=== PATIENT | female | born 1990 | race Caucasian/White ===

== ENCOUNTER 2023-11-02 08:09 | Observation (INO) | payer OTHER, SELFPAY ==
[2023-11-02] VITALS (93 sets, daily range): BP systolic 51–141; BP diastolic 29–120; PULSE 70–158; O2SAT 89–100; BMI 26.4
--- NOTE | ~2023-11-02 | US_ITS ---
EXAMINATION: US OB follow up w BPP DATE: 11/02/2023 11:54 INDICATION: Amniotic fluid index evaluation. Biophysical profile. TECHNIQUE: Real-time ultrasound of the pelvis was performed. The interpreting radiologist was not pre sent for the study. COMPARISON: None. FINDINGS: There is a single living fetus in vertex presentation. The placenta is anterior. cardiac activ ity and movement are noted. heart rate is 135 beats per minute (bpm). The amniotic fluid index is 19 cm, which is normal. The following biometric data were obtained: BPD: 85 cm corresponds to gestational age 34 weeks 0 day(s). Head circumference: 293 cm corresponds to gestational age 32 weeks 2 day(s). Abdominal circumference: 273 cm corresponds to gestational age 31 weeks 3 day(s). Femur length: 61 cm corresponds to gestational age 31 weeks 6 day(s). Estimated weight: 1846 g plus or minus 276 g, 42%. Biophysical profile performed by the technologist: breathing (30 sec sustained breathing in 30 minutes): 2 out of 2 movement (3 gross body movements in 30 minutes: 2 out of 2 tone (one episode of [id number] limb movement): 2 out of 2 Amniotic fluid pocket (2 cm): 2 out of 2 Total score: 8 out of 8 IMPRESSION: 1. Single living fetus in vertex presentation with heart rate of 135 bpm. 2. Normal placenta. 3. Biophysical profile 8 out of 8. 4. Gestational age by ultrasound of 32 weeks 3 day(s) with ultrasound estimated date of delivery (FELY ) of 12/25/2023. 5. Estimated weight is 42%th percentile by Hadlock criteria. Reviewed, dictated and finalized at location A. IMPRESSION: 1. Single living fetus in vertex presentation with heart rate of 135 bpm. 2. Normal placenta. 3. Biophysical profile 8 out of 8. 4. Gestational age by ultrasound of 32 weeks 3 day(s) with ultrasound estimated date of delivery (FELY) of 12/25/2023. 5. Estimated weight is 42%th percentile by Hadlock criteria.
--- NOTE | 2023-11-02 08:33 | PC.NURSE ---
pt presents reporting bleeding. Pt states she got up to the bathroom this AM and when she wiped she had some bloody discharge. Pt states that it was darker in color. Pt states that she waited for a bit and then urinated again and wiped with less blood but felt she needed to get checked out. pt denies needing a pad.
--- NOTE | 2023-11-02 08:38 | PM.IMHP ---
H&P: HPI History of Present Illness Date/Time: 11/02/23 08:38 Chief Complaint: vaginal bleeding in Narrative: 33-year-old multiparous who presented with vaginal spotting at 31 weeks gestation. Dark blood mostly at times some red blood , very light. no contractions, no nausea, no loss of fluid,. no nausea, vomiting, fever, chills. No chest pain or shortness of breath. No headache, blurry vision, epigastric pain, no worsening of swelling. Good movement. Had ultrasound yesterday is her OBs office. To obtain ultrasound placenta. To monitor, to orally hydrate. Will likely discharge. Review of Systems Review of Systems: All systems reviewed & are unremarkable except as noted in HPI and below Constitutional: Constitutional: Denies chills, Denies fatigue, Denies fever(s) and Denies weakness Eyes: Eyes: Denies blurry vision, Denies change in vision, Denies loss of peripheral vision, Denies loss of vision, Denies other visual disturbances and Denies eye pain ENT: Denies vertigo, Denies dizziness, Denies hearing loss, Denies mouth pain, Denies nasal obstruction, Denies neck mass and Denies neck pain Cardiovascular: Cardiovascular: Denies chest pain, Denies diaphoresis, Denies syncope, Denies leg edema and Denies dyspnea Respiratory: Respiratory: Denies chest congestion, Denies cough, Denies hemoptysis, Denies dyspnea and Denies wheezing Gastrointestinal: Gastrointestinal: Denies abdominal pain, Denies constipation, Denies diarrhea, Denies nausea and Denies vomiting Genitourinary: Genitourinary: Denies hematuria, Denies change in libido, Denies nocturia, Denies genital lesions, Denies flank pain and Denies urinary urgency Musculoskeletal: Musculoskeletal: Denies abnormal gait, Denies back pain, Denies myalgias, Denies arthralgias, Denies joint swelling, Denies muscle weakness and Denies neck pain Integumentary/Breasts: Skin/Breast: Denies swelling, Denies breast pain, Denies breast mass, Denies dry skin, Denies nipple discharge, Denies unusual bruising and Denies jaundice Neurologic: Denies Neuro-related abnormal movements, Denies Abnormal speech present, Denies abnormal gait, Denies behavioral changes, Denies confusion, Denies vertigo, Denies dizziness, Denies syncope, Denies loss of vision, Denies memory loss, Denies convulsions and Denies weakness Psychiatric: Psychiatric: Denies abnormal sleep pattern, Denies behavioral changes, Denies change in libido, Denies confusion, Denies depression, Denies anhedonia and Denies memory loss Endocrine: Endocrine: Reports no additional endocrine complaints, Denies change in libido and Denies fatigue Hematologic/Lymphatic: Hematologic/Lymphatic: Reports no additional hematologic/lymphatic complaints Allergic/Immunologic: Allergic/Immunologic: Reports no additional allergic/immunologic complaints and Denies wheezing Meds Vital Signs Vital Signs - 24 hr 11/02/23 08:29 11/02/23 08:34 Pulse Oximetry 100 100 Exam Const: General: cooperative, healthy appearing, comfortable and no acute distress Orientation/consciousness: oriented to person, oriented to place and oriented to time HENMT: Head: normal to inspection Ears: external ears normal Face/Nose/Sinus: Normal external nose present and normal facial exam Face and sinus: normal facial exam Eyes: General: appearance normal, both eyes and all related structures Neck: Neck: normal visual inspection, trachea midline and supple Resp: Auscultation: clear to auscultation bilaterally, no crackles, no rales, no rhonchi and no wheezes Cardio: Rate: regular rate Rhythm: regular rhythm Heart sounds: no click, no murmurs and no rubs GI: GI Palp: No abdominal tenderness, No Soft to palpation, No Tenderness to palpation present (GI) and No Palpable mass present Auscultation: normal bowel sounds Skin: General skin exam: normal color and no rashes or lesions noted Neuro: General: oriented to person, oriented to place and ayde
--- NOTE | 2023-11-02 08:42 | PC.NURSE ---
0844-pt called out spa concierge light stating she was lightheaded. RN immediately to the bedside. pt stated to RN she did not feel good and then stopped talking. pt unable to follow commands. RN called for help. RN and MD at bedside. Pt sternal rubbed by RN with no responses by pt. RN turned pt to left side (0847) and pt began responding to RN. O2 also placed on pt. 0850- RN and MD continue to be at bedside pt stating she feels better than she did and answering questions appropriately. Pt does not remember passing out but remembers why she came to the hospital. ordered labs, Fluid bolus and bedside ultrasound.
--- NOTE | 2023-11-02 09:10 | PC.NURSE ---
multiple attempts at IVs on this pt. IV therapy called
[2023-11-02 09:13] LABS: Glucose Point of Care 94 mg/dl (65-105)
[2023-11-02] MEDS: LACTATED RINGERS 1,000 ML 999 ML IV CONT (09:43)
[2023-11-02 09:45] LABS: Basophils Percent Auto 0.5 % (0.2-1.2); Eosinophils Absolute Auto 0.1 K/mm3 (0-0.3); Eosinophils Percent Auto 1.7 % (0-4.4); Hematocrit 33.5 % (37.0-47.0); Hemoglobin 11.1 g/dL (12.0-15.0); Immature Granulocyte Absolute 0.04 K/mm3 (0.00-0.031); Immature Granulocyte Percent A 0.5 % (0-0.5); Lymphocytes Absolute Auto 1.19 K/mm3 (0.9-3.2); Lymphocytes Percent Auto 15.3 % (18.3-44.2); Mean Corpuscular HGB Conc 33.1 g/dl (32-36); Mean Corpuscular Hemoglobin 30.4 pg (26-34); Mean Corpuscular Volume 91.8 fl (80-100); Mean Platelet Volume 10.1 fl (7.4-10.4); Monocytes Absolute Auto 0.6 K/mm3 (0.1-0.6); Monocytes Percent Auto 7.8 % (2.6-8.5); Neutrophils Absolute Auto 5.8 K/mm3 (1.3-6.7); Neutrophils Percent Auto 74.2 % (45.5-73.1); Platelet Count Result 257 k/mm3 (150-375); Red Blood Count 3.65 M/mm3 (4.2-5.4); White Blood Count 7.8 K/mm3 (4.5-10.0)
[2023-11-02 09:56] LABS: Alanine Aminotransferase 10 U/L (6-35); Albumin Level 3.7 g/dL (3.5-5.1); Alkaline Phosphatase 81 U/L (38-126); Anion Gap 2 mmol/L (8-16); Aspartate Amino Transferase 20 U/L (14-36); Bilirubin,Total 0.3 mg/dL (0.2-1.3); Blood Urea Nitrogen 5 mg/dL (7-17); Calcium 8.4 mg/dL (8.4-10.2); Carbon Dioxide 23 mmol/L (22-30); Chloride 108 mmol/L (98-107); Estimated CRCL calculation 120 ml/min; Estimated Glomerular Filt Rate > 60; Glucose 89 mg/dL (65-110); Potassium 3.3 mmol/L (3.4-5.0); Sodium 133 mmol/L (137-145); Uric Acid 3.4 mg/dL (2.5-7.5)
--- NOTE | 2023-11-02 10:28 | PC.NURSE ---
Dr. Costa updated on the pt with labs and vital signs. No blood noted when pt got up to the bathroom. Order received for 40mEq of potassium and EKG.
--- NOTE | 2023-11-02 10:31 | ECG_ITS ---
Measurements Intervals [place] Rate: 103 P: 15 WV: 149 QRS: 61 QRSD: 79 T: 11 QT: 338 QTc: 444 Interpretive Statements SINUS TACHYCARDIA BORDERLINE ST-T WAVE ABNORMALITY- ANT/INF LEADS BASELINE ARTIFACT- V2-V3 BORDERLINE ECG NO PREVIOUS ECG AVAILABLE FOR COMPARISON Electronically Signed On 11-02-2023 13:36:18 CDT by Eddie Leal D.O.
[2023-11-02] MEDS: POTASSIUM CHLORIDE 20 MEQ ER TABLET 40 MEQ PO (11:16)
--- NOTE | 2023-11-02 11:44 | PC.NURSE ---
pt up to the bathroom no blood noted. ultrasound back to the bedside for additional images of the placenta
--- NOTE | 2023-11-02 12:13 | PC.NURSE ---
Dr. Costa updated with ultrasound. Pt uterus irritable. okay with pt eating and continuing to watch pt at this time.
--- NOTE | 2023-11-02 14:29 | PC.NURSE ---
Dr. Costa at the bedside discussing POC with the pt. Pt would like to discharge and have her drive her to [facility] for 2nd evaluation.
--- NOTE | 2023-11-02 14:37 | PM.OBPNVD ---
OB - PN: Subj Subjective Date/time seen: 11/02/23 14:37 Interval history: episode of loss of consciousness that lasted less than 2 minutes. Patient was unresponsive for that time. She was hypotensive with a normal heart rate. Subsequently there was a heart rate deceleration. The mother quickly returned to full consciousness aware of her surroundings and location , able to move arms and legs freely in hands. heart tones quickly returned also, down 3 minutes. The patient was observed for several hours after this event. She was normotensive. testing was normal with reactive NST. Ultrasound of the and placenta were normal. BPP of 8/8. After several hours of observation and we consider discharge. The patient wanted to go to [facility]. We offered her both discharge and transfer to [facility]. She wanted to to go to [facility]. We agreed. Her was here and is going to drive her. OB - PN: Obj Data Labs 11/02/23 09:37 11/02/23 09:37 Labs: Laboratory Results - last 24 hr 11/02/23 11/02/23 11/02/23 08:46 09:37 09:37 WBC 7.8 RBC 3.65 L Hgb 11.1 L Hct 33.5 L MCV 91.8 MCH 30.4 MCHC 33.1 RDW 12.0 Plt Count 257 MPV 10.1 Immature Gran % (Auto) 0.5 Neut % (Auto) 74.2 H Lymph % (Auto) 15.3 L [place] % (Auto) 7.8 Eos % (Auto) 1.7 Baso % (Auto) 0.5 Lymph # (Auto) 1.19 [place] # (Auto) 0.6 Eos # (Auto) 0.1 Baso # (Auto) 0.0 Abs Immat Gran (auto) 0.04 H Absolute Neuts (auto) 5.8 Absolute Nucleated RBC 0.000 Nucleated RBC % 0.0 Sodium 133 L Potassium 3.3 L Chloride 108 H Carbon Dioxide 23 Anion Gap 2 L BUN 5 L Creatinine 0.50 L Estim Creat Clear Calc 120 Estimated GFR > 60 Glucose 89 POC Capillary Glucose 94 Uric Acid 3.4 Cancelled Calcium 8.4 Total Bilirubin 0.3 AST 20 ALT 10 Alkaline Phosphatase 81 Total Protein 7.0 Albumin 3.7 Blood Type O Positive Antibody Screen Negative Imaging Radiologist's impression: Impressions Obstetrical Follow-Up 11/02/23 12:01 IMPRESSION: 1. Single living fetus in vertex presentation with heart rate of 135 bpm. 2. Normal placenta. 3. Biophysical profile 8 out of 8. 4. Gestational age by ultrasound of 32 weeks 3 day(s) with ultrasound estimated date of delivery (FELY) of 12/25/2023. 5. Estimated weight is 42%th percentile by Hadlock criteria. OB - PN A/P Assessment and Plan (1) Loss of consciousness: Code(s): R40.20 - Unspecified coma Status: Acute (2) Other antepartum hemorrhage, third trimester: Code(s): O46.8X3 - Other antepartum hemorrhage, third trimester Status: Acute Plan episode of loss of consciousness that lasted less than 2 minutes. Patient was unresponsive for that time. She was hypotensive with a normal heart rate. Subsequently there was a heart rate deceleration. The mother quickly returned to full consciousness aware of her surroundings and location , able to move arms and legs freely in hands. heart tones quickly returned also, down 3 minutes. The patient was observed for several hours after this event. She was normotensive. testing was normal with reactive NST. Ultrasound of the infant and placenta were normal. BPP of 8/8. After several hours of observation and we consider discharge. The patient wanted to go to [facility]. We offered her both discharge and transfer to [facility]. She wanted to to go to [facility]. We agreed. Her was here and is going to drive her. Time Spent With Patient Time: Total time spent is greater than 50% in coordination of care (as documented) at patient's floor/unit and/or counseling patient:
--- NOTE | 2023-12-01 20:32 | PM.OBTRLD ---
OB - Triage/Final Diagnosis Visit Information Comments/Additional reasons for admission: I have assessed the risk for this patient, Aruna Quintanilla, and determined that she would benefit from observation care. Evaluation Laboratory results: Laboratory Tests 11/02/23 11/02/23 11/02/23 08:46 09:37 09:37 WBC 7.8 RBC 3.65 L Hgb 11.1 L Hct 33.5 L MCV 91.8 MCH 30.4 MCHC 33.1 RDW 12.0 Plt Count 257 MPV 10.1 Immature Gran % (Auto) 0.5 Neut % (Auto) 74.2 H Lymph % (Auto) 15.3 L [place] % (Auto) 7.8 Eos % (Auto) 1.7 Baso % (Auto) 0.5 Lymph # (Auto) 1.19 [place] # (Auto) 0.6 Eos # (Auto) 0.1 Baso # (Auto) 0.0 Abs Immat Gran (auto) 0.04 H Absolute Neuts (auto) 5.8 Absolute Nucleated RBC 0.000 Nucleated RBC % 0.0 Sodium 133 L Potassium 3.3 L Chloride 108 H Carbon Dioxide 23 Anion Gap 2 L BUN 5 L Creatinine 0.50 L Estim Creat Clear Calc 120 Estimated GFR > 60 Glucose 89 POC Capillary Glucose 94 Uric Acid 3.4 Cancelled Calcium 8.4 Total Bilirubin 0.3 AST 20 ALT 10 Alkaline Phosphatase 81 Total Protein 7.0 Albumin 3.7 Blood Type O Positive Antibody Screen Negative Final Diagnosis (1) Loss of consciousness: Code(s): R40.20 - Unspecified coma Status: Acute
== END 2023-11-02 14:55 | disposition home or self-care (01) ==
PROVIDERS: Admitting Provider Obstetrics & Gynecology; PCP Family Medicine; Visit Provider Obstetrics & Gynecology
DX: O46.8X3 Other antepartum hemorrhage, third trimester (principal); O26.893 Other specified pregnancy related conditions, third trimester; R40.4 Transient alteration of awareness; Z3A.31 31 weeks gestation of pregnancy
CPT/HCPCS: 36415; 76816; 76819; 80053; 82948; 84550; 85025; 86850; 86900; 86901; 93005; A9270; G0378; G0379; J7120